=== PATIENT | female | born 1995 | race Caucasian/White ===

== ENCOUNTER 2020-10-01 21:04 | Emergency (ER) | payer OTHER, SELFPAY ==
[2020-10-01] VITALS (7 sets, daily range): BP systolic 139–160; BP diastolic 87–98; PULSE 72–83; RESP 16; TEMP 36.8; O2SAT 98–100; BMI 30.4
--- NOTE | 2020-10-01 21:06 | XR_ITS ---
PROCEDURE INFORMATION: Exam: XR Chest Exam date and time: 10/01/20 09:06 PM Age: 25 years old Clinical indication: Injury or trauma; Laceration; Not specified; Patient HX: Dog attack, [place] on arms and hands and breast, pain TECHNIQUE: Imaging protocol: XR of the chest. Views: 1 view. COMPARISON: No relevant prior studies available. FINDINGS: Lungs: Unremarkable. No consolidation. Pleural spaces: Unremarkable. No pleural effusion. No pneumothorax. Heart/Mediastinum: Unremarkable. No cardiomegaly. Bones/joints: Unremarkable. IMPRESSION: No acute findings.
--- NOTE | 2020-10-01 21:06 | XR_ITS ---
PROCEDURE INFORMATION: Exam: XR Left Wrist Exam date and time: 10/01/20 09:06 PM Age: 25 years old Clinical indication: Injury or trauma; Laceration; Wrist; Left; Patient HX: Dog attack, [place] on arms and hands, pain; Additional info: Attacked by dog TECHNIQUE: Imaging protocol: XR Left wrist. Views: 3 or more views. COMPARISON: No relevant prior studies available. FINDINGS: Bones/joints: Normal. Soft tissues: Soft tissue swelling of the dorsum of the wrist. IMPRESSION: Soft tissue swelling of the dorsum of the wrist.
--- NOTE | 2020-10-01 21:06 | XR_ITS ---
PROCEDURE INFORMATION: Exam: XR Left Forearm Exam date and time: 10/01/20 09:06 PM Age: 25 years old Clinical indication: Injury or trauma; Laceration; Arm, lower; Left; Patient HX: Dog attack, [place] on arms and hands, pain TECHNIQUE: Imaging protocol: XR Left forearm. Views: 2 views. COMPARISON: CR XR WRIST LT MIN 3V 10/01/20 10:19 PM FINDINGS: Bones/joints: Normal. Soft tissues: Soft tissue swelling in the dorsal and lateral forearm. IMPRESSION: Soft tissue swelling in the dorsal and lateral forearm.
--- NOTE | 2020-10-01 21:06 | XR_ITS ---
PROCEDURE INFORMATION: Exam: XR Pelvis Exam date and time: 10/01/20 09:06 PM Age: 25 years old Clinical indication: Injury or trauma; Laceration; Not specified; Bilateral; Pelvic region; Patient HX: Dog attack, [place] on arms and hands, pain TECHNIQUE: Imaging protocol: XR pelvis. Views: 1 or 2 view. COMPARISON: No relevant prior studies available. FINDINGS: Bones/joints: Unremarkable. No acute fracture. Soft tissues: Unremarkable. IMPRESSION: No acute findings.
--- NOTE | 2020-10-01 21:06 | XR_ITS ---
PROCEDURE INFORMATION: Exam: XR Right Hand Exam date and time: 10/01/20 09:06 PM Age: 25 years old Clinical indication: Injury or trauma; Laceration; Right; Patient HX: Dog attack, [place] on arms and hands, pain TECHNIQUE: Imaging protocol: XR Right hand. Views: 3 or more views. COMPARISON: No relevant prior studies available. FINDINGS: Bones/joints: Open fracture of the base of the proximal phalanx of the 2nd digit. Soft tissues: Normal. IMPRESSION: Open fracture of the base of the proximal phalanx of the 2nd digit.
[2020-10-01 21:37] LABS: Basophils # 0.1 K/mm3 (0-0.2); Basophils % 0.8 % (0.1-2.0); Eosinophils # 0.2 K/mm3 (0.0-0.4); Eosinophils % 1.8 % (0.1-12.0); Hematocrit 33.7 % (37.0-47.0); Hemoglobin 11.3 g/dL (12.2-16.2); Lymphocytes # 3.4 K/mm3 (0.7-4.5); Lymphocytes % 29.9 % (10-50); Mean Corpuscular HGB Conc 33.6 g/dL (31.8-35.4); Mean Corpuscular Hemoglobin 29.3 pg (27.0-31.2); Mean Corpuscular Volume 87.4 fl (81-99); Mean Platelet Volume 8.4 fl (7.4-10.4); Monocytes # 0.4 K/mm3 (0.1-1.0); Monocytes % 3.8 % (1.7-9.3); Neutrophils # 7.1 K/mm3 (1.8-7.8); Neutrophils % 63.6 % (37.0-80.0); Platelet Count 253 K/mm3 (142-424); Red Blood Count 3.85 M/mm3 (4.20-5.40); Red Cell Distribution Width 14.3 % (11.5-17.5); White Blood Count 11.2 K/mm3 (4.8-10.8)
[2020-10-01 21:45] LABS: Alanine Aminotransferase 25 U/L (12-78); Albumin Level 4.6 g/dl (3.5-5.0); Albumin/Globulin Ratio 1.4 (1.1-1.8); Alkaline Phosphatase 66 U/L (38-126); Anion Gap 19.7 mEq/L (5-15); Aspartate Amino Transferase 30 U/L (14-36); Bilirubin,Total 0.6 mg/dl (0.2-1.3); Blood Urea Nitrogen 10 mg/dl (7-17); Calcium 9.4 mg/dl (8.4-10.2); Carbon Dioxide 18 mmol/L (22.0-30.0); Chloride 107 mmol/L (98-107); Creatinine Clearance Estimated 151 mL/min (50-200); Estimated Glomerular Filt Rate 86 ml/min (>60); GFR (African American) 104 ML/MIN (>60); Globulin 3.2 g/dL (1.3-3.2); Glucose 161 mg/dl (74-100); Potassium 3.7 mmoL/L (3.5-5.1); Sodium 141 mmol/L (136-145); Total Protein,Serum 7.8 g/dl (6.3-8.2)
[2020-10-01 21:53] LABS: HCG Qualitative, Serum Negative (Negative)
--- NOTE | 2020-10-01 22:39 | PC.NURSE ---
CONTACTING [facility] REGARDING POSSIBLE TRANSFER
--- NOTE | 2020-10-01 22:41 | [facility].EDWNDL ---
ED Disposition Clinical Impression: Dog bite Qualifiers: Encounter type: initial encounter Qualified Code(s): W54.0XXA - Bitten by dog, initial encounter Open finger fracture Qualifiers: Encounter type: initial encounter Finger: index finger Phalanx: proximal Fracture alignment: displaced Laterality: right Qualified Code(s): S62.610B - Displaced fracture of proximal phalanx of right index finger, initial encounter for open fracture Lacerations of multiple sites of left arm Qualifiers: Encounter type: initial encounter Qualified Code(s): S41.112A - Laceration without foreign body of left upper arm, initial encounter Lacerations of multiple sites of right arm Qualifiers: Encounter type: initial encounter Qualified Code(s): S41.111A - Laceration without foreign body of right upper arm, initial encounter Disposition: Home, Self-Care Condition on Discharge: Good Instructions: Animal Bites Additional Instructions: will call pt to see hand surg for follow up and call pcp for follow up and recheck if any issues Prescriptions: Amoxicillin/Potassium Clav [Augmentin 875-125 Tablet] 1 tab PO Q12H #20 tab Prescription Printed Ketorolac Tromethamine [Toradol 10mg tablet] 10 mg PO Q6HP PRN #12 tab MDD 40mg/day PRN Reason: Moderate To Severe Pain Prescription Printed Referrals: Provider,Referral, MD [Primary Care Provider] - - Critical Care Critical Care Time: No Attestation: On 10/01/20, the high probability of a clinically significant, sudden or life threatening deterioration of the following system(s) required my full and direct attention, intervention and personal management. The time I documented below is in addition to time spent performing reported procedures but includes the following listed in this critical care notation. Medical Decision Making - Medical Records Medical records reviewed: Yes: I reviewed the patient's medical records. - [place] Inquiry Pt receiving controlled substance: No Vital Signs: 10/01/20 21:00 10/01/20 21:05 10/01/20 21:33 Temperature 98.2 F Temperature Source Oral Pulse Rate 83 73 Respiratory Rate 16 Blood Pressure 147/91 H 139/92 H Blood Pressure Source [Right Arm] Automatic Cuff Blood Pressure Position [Right Arm] Sitting 02 Sat by Pulse Oximetry 98 99 100 Oxygen Delivery Method Room Air Room Air Room Air 10/01/20 22:22 10/01/20 22:44 10/01/20 23:00 Temperature Temperature Source Pulse Rate 73 72 74 Respiratory Rate Blood Pressure 149/87 H 149/92 H 160/98 H Blood Pressure Source [Right Arm] Blood Pressure Position [Right Arm] 02 Sat by Pulse Oximetry 99 98 99 Oxygen Delivery Method Room Air 10/01/20 23:30 10/02/20 00:00 Temperature Temperature Source Pulse Rate 81 79 Respiratory Rate Blood Pressure 148/95 H 131/84 Blood Pressure Source [Right Arm] Blood Pressure Position [Right Arm] 02 Sat by Pulse Oximetry 99 99 Oxygen Delivery Method - Lab Data Lab results reviewed: Yes: I reviewed the patient's lab results. Lab Results 10/01/20 21:15: WBC 11.2 H, RBC 3.85 L, Hgb 11.3 L, Hct 33.7 L, MCV 87.4, MCH 29.3, MCHC 33.6, RDW 14.3, Plt Count 253, MPV 8.4, Neut % (Auto) 63.6, Lymph % (Auto) 29.9, [place] % (Auto) 3.8, Eos % (Auto) 1.8, Baso % (Auto) 0.8, Neut # (Auto) 7.1, Lymph # (Auto) 3.4, [place] # (Auto) 0.4, Eos # (Auto) 0.2, Baso # (Auto) 0.1 10/01/20 21:15: Sodium 141, Potassium 3.7, Chloride 107, Carbon Dioxide 18 L, Anion Gap 19.7 H, BUN 10, Creatinine 0.80, Estimated Creat Clear 151, Estimated GFR 86, Est GFR ( Amer) 104, Glucose 161 H, Calcium 9.4, Total Bilirubin 0.6, AST 30, ALT 25, Alkaline Phosphatase 66, Total Protein 7.8, Albumin 4.6, Globulin 3.2, Albumin/Globulin Ratio 1.4 10/01/20 21:15: Serum HCG, Qual Negative Result diagrams: 10/01/20 21:15 10/01/20 21:15 Orders (Tests/Meds): ED MEDICATIONS Discontinued Medications Generic Name Dose Route Start Last Admin Trade Name Freq
--- NOTE | 2020-10-01 22:41 | PC.NURSE ---
DR SEARS S/W DR BOWERS
--- NOTE | 2020-10-01 22:53 | PC.NURSE ---
MD Bri speaking with MD Nicole at this time
--- NOTE | 2020-10-01 23:39 | PC.NURSE ---
UPDATED PT AND FAMILY ON POC
[2020-10-02] VITALS: BP 131/84; PULSE 79; O2SAT 99
--- NOTE | 2020-10-02 00:23 | PC.NURSE ---
AT BEDSIDE FOR SKIN REPAIR
--- NOTE | 2020-10-02 01:47 | PC.NURSE ---
pt reports she had a tetanus shot in 2018 while in the .
[2020-10-02 02:08] VITALS: BP 132/70; PULSE 75; RESP 17; TEMP 36.8; O2SAT 98
== END 2020-10-02 02:18 | disposition home or self-care (01) ==
PROVIDERS: Emergency Provider Emergency Medicine
DX: S41.111A Laceration without foreign body of right upper arm, initial encounter (principal); S41.112A Laceration without foreign body of left upper arm, initial encounter; S62.610B Displaced fracture of proximal phalanx of right index finger, initial encounter for open fracture; S21.011A Laceration without foreign body of right breast, initial encounter; W54.0XXA Bitten by dog, initial encounter; Y92.89 Other specified places as the place of occurrence of the external cause
CPT/HCPCS: 12004; 71045; 72170; 73090; 73110; 73130; 80053; 84703; 85025; 96365; 96375; 96376; 99283; 99284; J2405